=== PATIENT | male | born 1935 | race Two or more races ===

== ENCOUNTER 2017-07-24 06:06 | Day surgery (SDC) | payer MEDICARE, OTHER ==
--- NOTE | 2017-07-23 09:11 | PREOPHP ---
DATE OF ADMISSION: 07/24/2017 HISTORY OF PRESENT ILLNESS: This 81-year-old patient is admitted for elective cataract surgery of the right eye. The patient has had progressive deterioration of vision in the right eye for the past years time and 2 years ago underwent cataract surgery on the left eye with good visual result. The patient has a positive systemic history of hypertension and is currently being controlled on atenolol, amlodipine and benazepril. The patient is on aspirin, but this has been discontinued 1 week prior to surgery. There are no known allergies. PHYSICAL EXAMINATION: Visual acuity best corrected is 20/100 in the right eye and 20/30 in the left eye. Split lamp examination reveals advanced nuclear sclerotic cataract in the right eye and a posterior chamber intraocular lens in the left eye. Applanation tonometry is 19 mmHg in the right eye and examination of the retina appears within normal limits. DIAGNOSIS: Cataract right eye. PLAN: Cataract extraction with lens implant, right eye. The risks and alternatives to this surgery have been discussed with the patient as well as the potential for improved visual acuity leading to greater ability to perform activities of daily living. The patient understands this and agrees to proceed with surgery. Dictated By: Jamal Mansfield MD /[email or web address] /Document#: [id number]
[2017-07-23 11:49] VITALS: BMI 21.5
[2017-07-24] VITALS (8 sets, daily range): BP systolic 149–186; BP diastolic 57–82; PULSE 56–64; RESP 16–24; Ht 167.6 cm; Wt 67.4 kg
[~2017-07-24] VITALS: Ht 167.6 cm; Wt 67.4 kg
[~2017-07-24 06:06] MED LIST: ASPI325T4 PO; CIPROFLOXACIN 0.3% 2.5 ML OPH OPER SCH; CYCLOPENTOLATE/PHENYLEPH 2 ML OPH OPER SCH; DICLOFENAC 0.1% 2.5 ML OPH OPER SCH; NIFE30TA43 PO; TROPICAMIDE 1% 3ML OPH OPER SCH
[2017-07-24] MEDS ORDERED: LIDOCAINE 4% (MPF) 5 ML INJ ONE (06:26)
[2017-07-24] MEDS ORDERED: CEFAZOLIN 1 GM INJ ONE (06:26)
[2017-07-24] MEDS ORDERED: CARBACHOL 0.01% 1.5 ML OPH INJ ONE (06:27)
[2017-07-24] MEDS ORDERED: EPINEPHrine 1 MG INJ ONE (06:27)
[2017-07-24] MEDS ORDERED: DEXAMETHASONE 4 MG/ML 1 ML INJ ONE (06:27)
[2017-07-24] MEDS ORDERED: GENTAMICIN 80 MG INJ ONE (06:27)
[2017-07-24] MEDS ORDERED: NA HYALURONATE/CHONDROITIN 0.5 ML SYG ONE (06:27)
[2017-07-24] MEDS ORDERED: DEXAMETHASONE 4 MG/ML 1 ML INJ INJ ONE (07:00)
[2017-07-24] MEDS ORDERED: CARBACHOL 0.01% 1.5 ML OPH INJ IO ONE (07:00)
[2017-07-24] MEDS ORDERED: CEFAZOLIN 1 GM INJ INJ ONE (07:00)
[2017-07-24] MEDS ORDERED: NA HYALURONATE/CHONDROITIN 0.5 ML SYG RIGHT EYE ONE (07:00)
[2017-07-24] MEDS ORDERED: PROPOFOL 20 ML ONE (07:27)
[2017-07-24] MEDS ORDERED: FENTAnyl 50 MCG/ML VIAL ONE (07:27)
[2017-07-24] MEDS ORDERED: MIDAZOLAM 1 MG/ML 2 ML INJ ONE (07:27)
[2017-07-24] MEDS ORDERED: AMLO-147 PO (07:32)
[2017-07-24] MEDS ORDERED: BENA40TA41 PO (07:32)
[2017-07-24] MEDS ORDERED: ATEN50TA PO (07:32)
--- NOTE | 2017-07-24 08:13 | SIPON ---
Date/Time of Note Date/Time of Note DATE: 07/24/17 TIME: 08:12 Operative Report Preoperative Diagnosis cataract od Postoperative Diagnosis same Operation/Procedure Performed cataract surgery od Surgeon: ISHMAEL HAYNES MD Anesthesia Type: MAC Estimated Blood Loss: none Specimen: none Grafts/Implants posterior chamber lens implant Complications: no ISHMAEL HAYNES MD Jul 24, 2017 08:13
--- NOTE | 2017-07-24 08:34 | OPR ---
DATE OF OPERATION: 07/24/2017 POSTOPERATIVE DIAGNOSIS: Cataract, right eye. POSTOPERATIVE DIAGNOSIS: Cataract, right eye. OPERATIVE PROCEDURE: Cataract extraction with lens implant, right eye. SURGEON: Jamal Mansfield MD ANESTHESIA: Dr Ospina. OPERATION: Phacoemulsification with posterior chamber intraocular lens implant, right eye. PROCEDURE: The patient was brought to the operating room and placed on the table with an IV in place and the patient attached to an classroom monitor. Oxygen was given via face mask. After some intravenous sedation was administered, local anesthesia was given using Xylocaine 2% with epinephrine, mixed with Marcaine 0.5%. This was given in a lid block and retrobulbar injection. The patient was then prepped and draped in the usual sterile manner. A wire lid speculum was inserted between the lids of the right eye. A Superblade was used to enter the anterior chamber at the corneoscleral limbus at the 10:30 o'clock position. A separate incision was made using a 3.0-mm keratome which entered the corneoscleral junction at the 12 o'clock position. Through this 3-mm opening, an irrigating cystotome was introduced into the anterior chamber. The chamber was filled with Viscoat and an anterior capsulotomy was performed. Balanced salt solution was then used for hydrodissection of the lens. A phacoemulsification handpiece was then brought into the field and introduced into the anterior chamber. The lens nucleus was emulsified using a deep groove and cracking the nucleus into quadrants. Following this, each quadrant was aspirated and emulsified at the pupillary margin. It was noted that there was a break in the superior portion of the posterior capsule. However, no formed vitreous was present at the wound. Additional Viscoat was injected into the anterior chamber. After this was completed, the irrigation/aspiration handpiece was brought to the field, introduced into the posterior chamber, and the lens cortical material was removed. When this was completed, additional Viscoat was injected into the anterior and posterior chambers. The 3-mm opening had its internal lips enlarged, and then the posterior chamber intraocular lens measuring 20.0 diopters (Bausch and Lomb Model [id number] was then injected into the posterior chamber using the lens injector system. After the leading haptic was introduced into the capsular bag and the lens optic was present in the center of the eye, the injector was removed and the trailing haptic was grasped with non-toothed forceps and introduced into the capsular fold superiorly. A Sinskey hook was then used to rotate the intraocular lens so that the lips were oriented in the horizontal meridian. One 10-0 nylon suture was placed across the wound. Following the implantation of the lens, it was noted that there was some formed vitreous at the wound. This was removed using scissors and Weck-Ana sponges for removal as a limited anterior vitrectomy was needed. Prior to tying, the irrigation/aspiration handpiece was reintroduced into the anterior chamber to remove the Viscoat. Miochol was instilled to constrict the pupil, and then the 10-0 nylon suture was tied. The ends were cut short and then the knot was buried. Then, 0.5 mL of dexamethasone and 0.5 mL of Ancef were injected into the sub-Tenon space in the inferior fornix. Ciloxan drops were then placed on the surface of the eye. The speculum was removed and a patch was applied. The patient then left the operating room in satisfactory condition. Dictated By: Jamal Mansfield MD /[email or web address] /Document#: [id number] DARRYN
[2017-07-24] MEDS ORDERED: hydrALAzine 20 MG INJ IV PRN (09:00)
== END 2017-07-24 10:45 | disposition home or self-care (01) ==
LOC: SDS 06:06
PROVIDERS: ATTEND Ophthalmology
DX: H25.11 Age-related nuclear cataract, right eye (principal); I10 Essential (primary) hypertension
CPT/HCPCS: 66984; J0171; J0690; J1100; J1580; J2250; V2632; J3010